=== PATIENT | male | born 1995 | race Two or more races ===

== ENCOUNTER 2016-05-07 19:00 | Emergency (ER) | payer OTHER ==
[2016-05-07 19:33] VITALS: RESP 18
[2016-05-07] MEDS ORDERED: IBUPROFEN 600 MG TAB PO ONE (19:33)
--- NOTE | 2016-05-07 19:33 | EDPHY ---
H & P Time Seen by Provider: 05/07/16 19:19 HPI/ROS: CHIEF COMPLAINT: Cervical strain post skiing fall HISTORY OF PRESENT ILLNESS: 21-year-old male arrives via private vehicle stating that 2 days ago he was skiing, fell, impacted his head with no loss of consciousness, no immediate complaints of pain to his head and/or neck. Approximately 3 hours later he started to notice left lateral neck muscle pain which is reproducible with range of motion, tender to palpation left trapezius and left sternocleidomastoid muscle. He has not taken any [id number] medications including no ibuprofen, no Tylenol, no warm or cold packs. He denies: Facial complaints of facial paresthesia, visual disturbance, midline C -spine pain, peripheral paresthesia, weakness, numbness, nausea, vomiting, gait instability, neck manipulation, chiropractic manipulation. PRIMARY CARE PROVIDER: [facility] REVIEW OF SYSTEMS: A ten point review of systems was performed and is negative with the exception of the items mentioned in the HPI PAST MEDICAL/SURGICAL HISTORY: no anticoagulant use, no relevant medical/ surgical history SOCIAL HISTORY: denies alcohol use at time of incident PHYSICAL EXAM 1) GENERAL: Well-developed, well-nourished, alert and oriented. Appears to be in no acute distress. Answering questions appropriately. 2) HEAD: Normocephalic, atraumatic 3) HEENT: Pupils equal, round, reactive to light bilaterally. Negative Horners. Nasopharynx, oropharynx, clear. No deformity or angulation of nose. No septal hematoma. No rhinorrhea. No oral trauma. Ears bilaterally with normal tympanic membranes. No hemotympanum. No fluid or blood in the external auditory canal. No raccoon eyes. No Mcknight sign. Teeth are normally aligned with no gross malocclusion, TMJ bilaterally nontender, facial bones nontender including the zygomatic arch, maxilla mandible. 4) NECK: Posterior cervical spine is nontender, no stepoff, no effusion. Full range of motion which does not elicit any midline cervical spine pain, no posterior midline tenderness, no step-off. He is tender to palpation left trapezius and left sternocleidomastoid muscle. No crepitus. 5) LUNGS: Clear to auscultation bilaterally, no wheezes, no rhonchi, no retractions. No obvious signs of trauma. No chest wall pain. No flaring, no grunting. Moving symmetrically. No crepitus. 6) HEART: Regular rate and rhythm, 7) ABDOMEN: No guarding, no rebound, no focal tenderness, no peritoneal signs, no signs of trauma, no ecchymosis 8) MUSCULOSKELETAL: Moving all extremities, no focal areas of tenderness, no obvious trauma. 9) BACK: .No midline vertebral tenderness, no fluctuance, no step-off, no obvious trauma, no visual or palpable abnormality. 10) SKIN: No laceration. No abrasion 11) NEURO: Awake, alert, and oriented to person, place and time. Answers questions appropriately. There were no obvious focal neurologic abnormalities. No cerebellar dysfunction. Cranial nerves 2 through to 12 intact. Normal steady gait. Upper and lower extremities bilaterally with strength 5 / 5, reflexes 2+. DIFFERENTIAL DIAGNOSIS: [ In no particular order my differential includes but is not limited to deep space infection, cervico-cranial vessel disssection, muscle strain. Constitutional: Initial Vital Signs Temperature (C) 36.6 C 05/07/16 19:05 Heart Rate 96 05/07/16 19:05 Respiratory Rate 18 05/07/16 19:05 Blood Pressure 135/88 H 05/07/16 19:05 O2 Sat (%) 95 05/07/16 19:05 O2 Delivery Mode Room Air Allergies/Adverse Reactions: No Known Allergies Allergy (Unverified 05/07/16 19:31) Home Medications: Medication Instructions Recorded Cyclobenzaprine [Flexeril 10 MG 10 mg PO TID #10 tab 05/07/16 (RX)] Ibuprofen [Motrin (*)] 800 mg PO Q6 #15 tab 05/07/16 Medical Decision Making ED Course/Re-evaluation: I think that the patient's symptoms are more than likely secondary to muscular strain. I think that cervico-cranial vessel dissection less than likely in this patient at this time. I think that dislocation or fracture of the cervical spine is less than likely as well as he has no midline C-spine pain, no immediate complaints of pain, no neurologic deficits either subjectively or objectively.. I do not think that imaging studies definitively indicated at this time. I discussed this with the patient and she is in agreement and feels comfortable with this treatment plan. My usual and customary cervical precautions and instructions have been provided including avoiding manipulation of the area. Departure - Departure Disposition: Home, Routine, Self-Care Clinical Impression: Cervical muscle strain Qualifiers: Encounter type: initial encounter Qualified Code(s): S16.1XXA - Strain of muscle, fascia and tendon at neck level, initial encounter Condition: Good Instructions: Cervical Strain (ED) Additional Instructions: Return to the ER immediately if you experience new or worsening neck pain, dizziness, visual disturbance, double vision, lightheadedness, facial droop, or any other symptoms that concern you. Avoid deep tissue massage and chiropractic manipulation, until symptom-free, and cleared by your regular health care provider. Referrals: [facility] [Provider Group] - 1-2 days without fail Stand Alone Forms: School Excuse Prescriptions: Cyclobenzaprine [Flexeril 10 MG (RX)] 10 mg PO TID #10 tab Ibuprofen [Motrin (*)] 800 mg PO Q6 #15 tab
[2016-05-07] MEDS ORDERED: CYCLOBENZAPRINE 10 MG TAB PO ONE (19:34)
[2016-05-07 20:03] VITALS: BP 145/88; PULSE 83; TEMP 98.1; O2SAT 96
== END 2016-05-07 20:03 | disposition home or self-care (01) ==
DX: S16.1XXA Strain of muscle, fascia and tendon at neck level, initial encounter (principal); V00.321A Fall from snow-skis, initial encounter; Y99.8 Other external cause status; Y93.23 Activity, snow (alpine) (downhill) skiing, snowboarding, sledding, tobogganing and snow tubing